=== PATIENT | female | born 1950 | race Caucasian/White ===

== ENCOUNTER 2020-10-16 13:14 | Emergency (ER) | payer OTHER, MEDICARE ==
[~2020-10-16] VITALS: Ht 149.9 cm; Wt 53.5 kg
[2020-10-16] MEDS ORDERED: AMOCLA875 PO (13:40)
== END 2020-10-16 14:15 | disposition home or self-care (01) ==
LOC: ER 13:14
DX: S81.052A Open bite, left knee, initial encounter (principal); W54.0XXA Bitten by dog, initial encounter
CPT/HCPCS: 99283